=== PATIENT | male | born 1960 ===

== ENCOUNTER 2021-04-01 05:34 | Outpatient (REF) | payer OTHER, SELFPAY ==
[2021-04-01 05:47] LABS: Hematocrit 27.3 % (42.0-52.0); Hemoglobin 8.7 g/dl (14.0-18.0); Mean Corpuscular HGB Conc 31.9 g/dl (31.0-36.0); Mean Corpuscular Hemoglobin 28.1 pg (27.0-33.0); Mean Corpuscular Volume 88.1 fL (80.0-98.0); Mean Platelet Volume 9.9 fL (9.4-12.4); Platelet Count 279 X10*3/uL (160-400); Red Cell Distribution Width 13.6 % (11.0-16.0); White Blood Count 8.7 X10*3/uL (4.8-10.8)
[2021-04-01 06:16] LABS: Anion Gap 14 (12-20); Blood Urea Nitrogen 17 mg/dL (9-16); Calcium 9.7 mg/dL (8.4-10.2); Carbon Dioxide 22 mmol/L (22-29); Chloride 105 mmol/L (96-108); Estimated Glomerular Filt Rate > 60; Glucose Random 105 mg/dL (60-115); Potassium 3.8 mmol/L (3.3-5.1); Sodium 137 mmol/L (135-145)
== END 2021-04-01 05:35 | disposition home or self-care (01) ==
LOC: HO.MMNH1L 05:34
PROVIDERS: Visit Provider Family Medicine
DX: A49.8 Other bacterial infections of unspecified site (principal); Z93.2 Ileostomy status; Z48.815 Encounter for surgical aftercare following surgery on the digestive system
CPT/HCPCS: 36415; 80048; 85027

== ENCOUNTER 2021-04-07 01:41 | Outpatient (REF) | payer OTHER, SELFPAY ==
[2021-04-07 07:35] LABS: Alanine Aminotransferase 30 U/L (0-40); Alkaline Phosphatase 250 U/L (39-117); Anion Gap 13 (12-20); Aspartate Amino Transferase 33 U/L (5-37); Bilirubin Total 0.5 mg/dL (0.0-1.0); Blood Urea Nitrogen 12 mg/dL (9-16); Calcium 9.3 mg/dL (8.4-10.2); Carbon Dioxide 24 mmol/L (22-29); Chloride 101 mmol/L (96-108); Estimated Glomerular Filt Rate > 60; Glucose Random 96 mg/dL (60-115); Potassium 3.8 mmol/L (3.3-5.1); Sodium 134 mmol/L (135-145); Total Protein 5.8 g/dL (6.5-8.0)
[2021-04-07 09:07] LABS: Hematocrit 28.4 % (42.0-52.0); Mean Corpuscular HGB Conc 31.7 g/dl (31.0-36.0); Mean Corpuscular Hemoglobin 27.2 pg (27.0-33.0); Mean Corpuscular Volume 85.8 fL (80.0-98.0); Platelet Count 289 X10*3/uL (160-400); Red Blood Count 3.31 X10*6/uL (4.60-5.80); Red Cell Distribution Width 13.3 % (11.0-16.0); White Blood Count 9.5 X10*3/uL (4.8-10.8)
== END 2021-04-07 01:42 | disposition home or self-care (01) ==
LOC: HO.MMNH1L 01:41
PROVIDERS: Visit Provider Family Medicine
DX: A49.8 Other bacterial infections of unspecified site (principal); Z93.2 Ileostomy status
CPT/HCPCS: 36415; 80053; 85027